=== PATIENT | male | born 1995 | race Caucasian/White ===

== ENCOUNTER 2021-08-22 12:48 | Emergency (ER) | payer OTHER ==
[2021-08-22 13:38] VITALS: BP 117/60; PULSE 66; TEMP 97.8; BMI 25.9
== END 2021-08-22 13:59 | disposition home or self-care (01) ==
LOC: FER 12:48
DX: S93.491A Sprain of other ligament of right ankle, initial encounter (principal)
CPT/HCPCS: 73610-TC-RT-FY; 99284-25